=== PATIENT | female | born 1985 | race Caucasian/White ===

== ENCOUNTER 2016-07-16 00:31 | Inpatient (IN) | payer OTHER ==
[~2016-07-16] VITALS: Ht 154.9 cm; Wt 68.5 kg
[~2016-07-16 00:31] MED LIST: ACYC400T PO; MAKE250I IM; SELEPAK PO; SERT-129 PO; ZOFR4TAB3 SL
[2016-07-16] MEDS ORDERED: SODIUM CHLORID 0.9% 500 ML INJ 500 ML IV PRN (01:45)
[2016-07-16] MEDS ORDERED: LIDOCAINE HCL 1% 50 ML VIAL INFIL PRN (01:45)
[2016-07-16] MEDS ORDERED: ONDANSETRON HCL 4 MG/2 ML VIAL IV PRN (01:45)
[2016-07-16] MEDS ORDERED: PENICILLIN G POTASSIUM INJ 5,000,000 UNITS in SODIUM CHLORIDE 0.9% INJ 100 ML IV ONE (01:45)
[2016-07-16] MEDS ORDERED: LIDOCAINE HCL 1% 50 ML VIAL I-DERMAL PRN (01:45)
[2016-07-16] MEDS ORDERED: CITRIC ACID-SODIUM CITRATE LIQ 30 ML UDC PO SCH (01:45)
[2016-07-16] MEDS ORDERED: OXYTOCIN 30 UNITS-500ML PREMIX 500 ML IV ONE (01:45)
[2016-07-16] MEDS ORDERED: MINERAL OIL 10 ML VIAL TOPICAL PRN (01:45)
[2016-07-16] MEDS ORDERED: SODIUM CHLOR 0.9% 1000 ML INJ 1,000 ML IV PRN (02:00)
--- NOTE | 2016-07-16 02:04 | HHI.HP ---
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 11 oz. born at 31 weeks Past Surgical History Surgical History: No Previous Surgery Family History Narrative Family History Diabetes heart disease Social History Alcohol Use: No Tobacco Use: No Substance Abuse: No Allergies-Medications (Allergen,Severity, Reaction): Coded Allergies: No Known Allergies (Unverified , 07/16/16) Home Meds Active Scripts Acyclovir 400 Mg Tab1 Tab PO BID #60 TAB Ref 6 Prov:Kim Capone 06/29/16 Reported Medications Ondansetron Odt (Zofran Odt)4 Mg Tab4 Mg SL Q6HR PRN (Nausea/Vomiting) #30 TAB Ref 0 05/13/16 Sertraline 100 Mg [id number] Mg PO DAILY #60 TAB Ref 0 05/13/16 Hydroxyprogesterone Caproate Inj ([place] Inj)250 Mg/Ml [id number] Mg IM ONCE #1 VIAL Ref 0 05/13/16 Mv & Min W/Fe Polysac (Select-Ob+Dha 29-1 & 250 mg)1 Yoshi Yoshi PO 1 Day 05/13/16 Review of Systems Gastrointestinal: Abdominal Pain Genitourinary: Other Physical Exam Narrative GENERAL: Well-nourished, well-developed patient. Alert oriented 3 and cooperative in no acute distress CARDIOVASCULAR: Regular rate and rhythm without murmurs, gallops, or rubs. RESPIRATORY: Breath sounds equal bilaterally. No accessory muscle use. ABDOMEN/GI: Gravid consistent with stated gestational age Gravid to [-] weeks size Fundal Height: [-] GENITOURINARY: External Genitalia: intact and normal in appearance thoroughly inspection no HSV lesions noted BUS glands: [-] Cervix: [-] Midline soft Dilatation: [-] 2 cm Effacement: [-] 50% effaced Station: [-] -2 Presentation: [-] Vertex Membranes: [ ruptured] clear Uterine Contractions: [-] Irregular FHT's: Category: [-] 1 Baseline: [-] 140 Reactive: [-]+ Variability: [-] Moderate aydq-nn-cxip variability Decels: [-] 0 EXTREMITIES: No cyanosis or edema. 2+ reflexes NEUROLOGICAL: Awake and alert. Motor and sensory grossly within normal limits. Five out of 5 muscle strength in all muscle groups. Normal speech. Data Data Vital Signs Reviewed: Yes (blood pressures 133/79 pulse is 89 respirations 16 temperature is 98.1) Orders Ob (2e) Additional Admit Info (07/16/16 01:16) Admit To Inpatient (07/16/16 ) Code Status (07/16/16 01:40) Vital Signs (Adult) .Per protocol (07/16/16 01:40) ^ Heart (07/16/16 01:40) ^ Amnioinfusion (07/16/16 01:40) Urinary Catheter Management .ONCE (07/16/16 01:40) Diet Liquid (07/16/16 Breakfast) Lactated Ringer's 1000 Ml Inj (Lr 1000 M (07/16/16 01:40) Lactated Ringer's 1000 Ml Inj (Lr 1000 M (07/16/16 01:40) Sodium Chlorid 0.9% 500 Ml Inj (Ns 500 M (07/16/16 01:45) Sodium Chlor 0.9% 1000 Ml Inj (Ns 1000 M (07/16/16 02:00) Lidocaine 1% Inj (50 Ml) (Xylocaine 1% I (07/16/16 01:45) Citric Acid-Sodium Citrate Liq (Bicitra (07/16/16 01:45) Ondansetron Inj (Zofran Inj) (07/16/16 01:45) Fentanyl Inj (Fentanyl Inj) (07/16/16 01:45) Fentanyl Inj (Fentanyl Inj) (07/16/16 01:45) Penicillin G Potassium Inj (Pfizerpen-G (07/16/16 01:45) Penicillin G Potassium Inj (Pfizerpen-G (07/16/16 05:45) Complete Blood Count With Diff (07/16/16 01:40) Hold Clot (07/16/16 01:40) Abo/Rh Blood Type (07/16/16 01:40) Urinalysis - C+S If Indicated (07/16/16 01:40) Resp Oxygen Non Rebreathe Mask (07/16/16 ) ^ Epidural / Intrathecal Infus (07/16/16 01:40) Oxytocin 30 Units-500ml Premix (Pitocin (07/16/16 01:45) Lidocaine 1% Inj (50 Ml) (Xylocaine 1% I (07/16/16 01:45) Light Mineral Oil (Muri-Lube Oil) (07/16/16 01:45) Ob/Psych Drug Screen, Urine (07/16/16 01:40) Assessment/Plan Assessment and Plan Intrauterine at 35 weeks and 3 days Premature rupture of membranes Rh- labor History of labor History of HSV no lesions Plan; Admit IV fluid hydration CBC type and screen Antibiotic coverage for group B strep GBS PCR Epidural at patient's request Anticipate vaginal delivery Shanika Nunez MD Jul 16, 2016 02:04
[2016-07-16 02:41] LABS: BASOPHIL # 0.1 TH/MM3 (0-0.2); BASOPHIL % 0.7 % (0.0-2.0); EOSINOPHIL # 0.4 TH/MM3 (0-0.4); EOSINOPHIL % 3.6 % (0.0-4.0); HEMATOCRIT 30.9 % (35.0-46.0); LYMPH % 26.4 % (9.0-44.0); LYMPHOCYTE # 3.1 TH/MM3 (1.0-4.8); MEAN CELL VOLUME 75.4 FL (80.0-100.0); MEAN CORPUSCULAR HEMOGLOBIN 24.6 PG (27.0-34.0); MEAN CORPUSCULAR HGB CONC 32.6 % (32.0-36.0); MONO % 9.4 % (0.0-8.0); NEUT % 59.9 % (16.0-70.0); PLATELET COUNT 313 TH/MM3 (150-450); RED CELL DISTRIBUTION WIDTH 15.7 % (11.6-17.2); WHITE BLOOD COUNT 11.6 TH/MM3 (4.0-11.0)
[2016-07-16 02:44] LABS: BACTERIA, URINE RARE /hpf; BLOOD, URINE TRACE (NEG); COMMENT (UR) CULTURE INDICATED; CULTURE IF INDICATED CULTURE INDICATED; GLUCOSE,URINE NEG (NEG); HYALINE CAST, URINE 1 /lpf (RARE); KETONE, URINE NEG (NEG); NITRITE,URINE NEG (NEG); PH, URINE 6.5 (5.0-8.5); SQUAMOUS EPITHELIAL CELL URINE 13 /hpf (0-5); URINE COLOR LIGHT-YELLOW (YELLW/STRAW)
[2016-07-16 02:47] LABS: HEMO FLAGS AUTO DIFF
[2016-07-16 02:57] LABS: AMPHETAMINE, URINE NEG (NEG); BARBITURATES, URINE NEG (NEG); COCAINE, URINE NEG (NEG)
[2016-07-16 03:14] LABS: BANDS 6 % (0-6); CORRECTED NUCLEATED RBC 1 /100 WBC (0-0); EOSINOPHILS 4 % (0-4); NEUTROPHIL # MANUAL DIFF 7.3 TH/MM3 (1.8-7.7); PLATELET ESTIMATE SMEAR NORMAL (NORMAL); PLATELET MORPHOLOGY NORMAL (NORMAL); POLYS (SEG NEUTROPHILS) 57 % (16-70); SCAN/DIFF FINAL DIFF MANUAL; WBC DIFF SAMPLE 100
[2016-07-16] MEDS ORDERED: ePHEDrine/NS 50 MG/5 ML SYR ONE (03:56)
[2016-07-16] MEDS ORDERED: fentaNYL 2MCG-BUPIV 0.125% INJ 100 ML ONE (03:56)
[2016-07-16] MEDS: LACTATED RINGER'S 1000 ML INJ 1,000 ML IV PRN ×2 (04:26→05:20)
[2016-07-16] MEDS: LACTATED RINGER'S 1000 ML INJ 1,000 ML IV SCH ×2 (04:26→12:25)
[2016-07-16] MEDS ORDERED: NO SYSTEM NARCOTICS XX PRN (05:00)
[2016-07-16] MEDS ORDERED: DO NOT ADMINISTER ANTICOAGULANTS XX PRN (05:00)
[2016-07-16] MEDS ORDERED: ePHEDrine/NS 50 MG/5 ML SYR IV PRN (05:00)
[2016-07-16] MEDS ORDERED: fentaNYL 2MCG-BUPIV 0.125% INJ 100 ML EPIDURAL SCH (05:00)
[2016-07-16] MEDS ORDERED: PENICILLIN G POTASSIUM INJ 2,500,000 UNITS in SODIUM CHLORIDE 0.9% INJ 100 ML IV SCH (05:45)
[2016-07-16] MEDS ORDERED: OXYTOCIN 30 UNITS-500ML PREMIX 500 ML ONE (11:22)
--- NOTE | 2016-07-16 11:55 | PD.OB.DELI ---
Delivery Date: Jul 16, 2016 Anesthesia: Epidural Episiotomy: None Vaginal Delivery: Normal Presentation: Occiput anterior Nuchal Cord: x2 : Female One Minute : 8 Five Minute : 9 Weight: [id number] Infant Care: Suctioned, Spontaneous crying, Responded to stimulation Placenta: Spontaneous delivery Additional Information Ms. Apodaca is a 31 y/o G2 now P2 after without complication. There were no cervical or vaginal repairs required. Mother and baby are resting comfortably in room together. SDW: Avery Peter MD R1 Jul 16, 2016 11:55
[2016-07-16] MEDS ORDERED: ZOLPIDEM TARTRATE 5 MG TAB PO PRN (12:00)
[2016-07-16] MEDS ORDERED: SODIUM CHLORIDE 0.9% FLUSH 5 ML FLUSH IV PRN (12:00)
[2016-07-16] MEDS ORDERED: DOCUSATE SODIUM 50 MG/SENNA 8.6 MG TAB PO PRN (12:00)
[2016-07-16] MEDS ORDERED: ONDANSETRON ODT 4 MG TAB PO PRN (12:00)
[2016-07-16] MEDS ORDERED: BENZOCAINE 20% TOPICAL SPRAY 60 ML CAN TOPICAL PRN (12:00)
[2016-07-16] MEDS ORDERED: WITCH HAZEL 50%/GLYCERIN 12.5% 40 PAD JAR TOPICAL PRN (12:00)
[2016-07-16] MEDS ORDERED: ALUMINUM/MAGNESIUM/SIMETH 30 ML CUP PO PRN (12:00)
[2016-07-16] MEDS ORDERED: ACETAMINOPHEN 325 MG TAB PO PRN (12:00)
[2016-07-16] MEDS: SODIUM CHLORIDE 0.9% FLUSH 5 ML FLUSH IV SCH (12:26)
--- NOTE | 2016-07-16 12:35 | PD.LABORPN ---
Subjective Subjective Attending Delivery note on Ms Gr Patient 35 week gestation who delivered vaginally without complication over an intact perineum, a lacerations. Baby did well, placenta Out Spontaneously and Intact. Delivery done by family life counselor no complications aside blood loss 100 cc. Mother and baby doing well Objective Objective Pelvic Exam: Cervix: [-] Dilatation: [-] Effacement: [-] Station: [-] Presentation: [-] Membranes: [intact or ruptured] Uterine Contractions: [-] FHT's: Category: [-] Baseline: [-] Reactive: [-] Variability: [-] Decels: [-] Keon Connors II, MD Jul 16, 2016 12:35
[2016-07-16 14:00] VITALS: BP 117/75; PULSE 83; RESP 17; TEMP 98.3
[2016-07-16] MEDS ORDERED: MEASLES, MUMPS, RUBELLA VACCINE 0.5 ML VIAL SQ ONE (16:00)
[2016-07-16] MEDS ORDERED: DIPHTH/TETANUS/ACEL PERTUSSIS (BOOSTER) 0.5 ML VIAL/PFS IM ONE (16:00)
[2016-07-16 19:50] VITALS: BP 125/81; PULSE 88; RESP 18; TEMP 98.5
[2016-07-17] MEDS: IBUPROFEN 600 MG TAB PO PRN ×2 (01:06→18:13)
--- NOTE | 2016-07-17 08:54 | HHI.OB ---
Subjective Post Day: 1 Remarks doing well no problems , sarah diet , bleeding decreased uterus at umb NT Objective Vitals/I&O Vital Signs Date Time Temp Pulse Resp B/P Pulse Ox O2 Delivery O2 Flow Rate FiO2 07/16/16 19:50 98.5 88 18 125/81 07/16/16 14:00 98.3 83 17 117/75 Objective Remarks GENERAL: Well-nourished, well-developed patient. CARDIOVASCULAR: Regular rate and rhythm without murmurs, gallops, or rubs. RESPIRATORY: Breath sounds equal bilaterally. No accessory muscle use. ABDOMEN/GI: Abdomen soft, non-tender. Fundus: Firm, non-tender at umbilicus. GENITOURINARY: Light to moderate bleeding. EXTREMITIES: No cyanosis or edema, non-tender, without signs of DVT. Medications and IVs Current Medications Medications (Trade) Dose Ordered Sig/Mary Route Start Time Stop Time Status Last Admin Lactated Ringer's 1,000 ml @ 125 mls/hr Q8H IV 07/16/16 01:40 07/16/16 12:25 Lactated Ringer's 1,000 ml @ 3,000 mls/hr Q20M PRN IV 07/16/16 01:40 07/16/16 05:20 Sodium Chloride 1,000 ml @ 100 mls/hr Q10H PRN IV 07/16/16 02:00 (Pfizerpen-G Inj/ NS Inj) 100 ml @ 200 mls/hr Q4H IV 07/16/16 05:45 07/16/16 06:32 (NS Flush) 2 ml BID IV 07/16/16 12:00 07/16/16 12:26 (NS Flush) 2 ml UNSCH PRN IV 07/16/16 12:00 (Tylenol) 650 mg Q4H PRN PO 07/16/16 12:00 (Motrin) 600 mg Q6H PRN PO 07/16/16 12:00 07/17/16 01:06 (Americaine 20% Top Spr) 1 spray Q4H PRN TOPICAL 07/16/16 12:00 (Tucks Pads) 1 applic QID PRN TOPICAL 07/16/16 12:00 (Beatriz-Colace) 2 tab Q12H PRN PO 07/16/16 12:00 (Ambien) 5 mg HS PRN PO 07/16/16 12:00 (Mag-Al Plus Susp Liq) 15 ml Q8H PRN PO 07/16/16 12:00 (Zofran Odt) 4 mg Q6H PRN PO 07/16/16 12:00 (Flu (Quadrivalent) Vaccine Inj) 0.5 ml ONCE ONCE IM 07/17/16 09:00 07/17/16 09:01 Assessment/Plan Assessment and Plan Intrauterine at 35 weeks and 3 days en Plan;D/C home Keon Thayer II, MD Jul 17, 2016 08:54
[2016-07-17] MEDS ORDERED: INFLUENZA VIRUS VACCINE (QUADRIVALENT) 0.5 ML SYR IM ONE (09:00)
[2016-07-17] MEDS: SODIUM CHLORIDE 0.9% FLUSH 5 ML FLUSH IV SCH ×2 (09:00→21:00)
--- NOTE | 2016-07-17 11:38 | HHI.OB ---
Subjective Post Day: 1 Remarks 31-year-old , post day #1 after a spontaneous vaginal delivery. Positive for herpes, was on acyclovir suppressive therapy. She is recovering well. Eating whole foods, urinating normally, ambulating. Her pain is well controlled. Objective Vitals/I&O Vital Signs Date Time Temp Pulse Resp B/P Pulse Ox O2 Delivery O2 Flow Rate FiO2 07/16/16 19:50 98.5 88 18 125/81 07/16/16 14:00 98.3 83 17 117/75 Objective Remarks GENERAL: Well-nourished, well-developed patient. CARDIOVASCULAR: Regular rate and rhythm without murmurs, gallops, or rubs. RESPIRATORY: Breath sounds equal bilaterally. No accessory muscle use. ABDOMEN/GI: Abdomen soft, non-tender. Fundus: Firm, non-tender at umbilicus. GENITOURINARY: Light to moderate bleeding. EXTREMITIES: No cyanosis or edema, non-tender, without signs of DVT. Medications and IVs Current Medications Medications (Trade) Dose Ordered Sig/Mary Route Start Time Stop Time Status Last Admin Lactated Ringer's 1,000 ml @ 125 mls/hr Q8H IV 07/16/16 01:40 07/16/16 12:25 Lactated Ringer's 1,000 ml @ 3,000 mls/hr Q20M PRN IV 07/16/16 01:40 07/16/16 05:20 Sodium Chloride 1,000 ml @ 100 mls/hr Q10H PRN IV 07/16/16 02:00 (Pfizerpen-G Inj/ NS Inj) 100 ml @ 200 mls/hr Q4H IV 07/16/16 05:45 07/16/16 06:32 (NS Flush) 2 ml BID IV 07/16/16 12:00 07/16/16 12:26 (NS Flush) 2 ml UNSCH PRN IV 07/16/16 12:00 (Tylenol) 650 mg Q4H PRN PO 07/16/16 12:00 (Motrin) 600 mg Q6H PRN PO 07/16/16 12:00 07/17/16 01:06 (Americaine 20% Top Spr) 1 spray Q4H PRN TOPICAL 07/16/16 12:00 (Tucks Pads) 1 applic QID PRN TOPICAL 1/5/17 12:00 (Beatriz-Colace) 2 tab Q12H PRN PO 07/16/16 12:00 (Ambien) 5 mg HS PRN PO 07/16/16 12:00 (Mag-Al Plus Susp Liq) 15 ml Q8H PRN PO 07/16/16 12:00 (Zofran Odt) 4 mg Q6H PRN PO 07/16/16 12:00 Assessment/Plan Problem List: (1) care following vaginal delivery (2) Depression complicating , antepartum Assessment and Plan 31-year-old female, Intrauterine at 35 weeks and 3 days, delivered via spontaneous vaginal delivery. - AFVSS -Urine culture showed greater than 100,000 colony-forming units of lactobacillus , likely a contaminant. - Continue routine care - Motrin and Percocet PRN pain - Encourage OOB - Pelvic rest x 6 wks - Contraception: We'll discuss with her PCP. - Anticipate D/C tomorrow 07/18/2015 puja Gray-John Anderson MD R2 Jul 17, 2016 11:38
[2016-07-17] MEDS ORDERED: IBUP-232 PO (12:01)
[2016-07-17] MEDS ORDERED: SENN1TAB PO (12:01)
--- NOTE | 2016-07-17 12:01 | HHI.DCPOC ---
Discharge Care Plan Diagnosis: (1) care following vaginal delivery (2) UTI (urinary tract infection) (3) Depression complicating , antepartum Report Symptoms to Your Doctor -Temperate above 100.5 degrees -Redness, of incision or excessive or foul smelling drainage -Unusual pain or calf pain -Increased vaginal bleeding -Painful or difficulty urinating -Feelings of extreme sadness or anxiety after 2 weeks Goals to Promote Your Health * To prevent worsening of your condition and complications * To maintain your health at the optimal level Directions to Meet Your Goals Take your medications as prescribed Follow your dietary instruction Follow activity as directed Ensure plenty of rest for recovery Drink fluids for hydration Keep your appointments as scheduled Take your immunizations and boosters as scheduled If your symptoms worsen call your PCP, if no PCP go to Urgent Care Center or Emergency Room Smoking is Dangerous to Your Health. Avoid second hand smoke Call the 24-hour crisis hotline for domestic abuse at John Grubbs MD R2 Jul 17, 2016 12:01
[2016-07-18] MEDS: LACTATED RINGER'S 1000 ML INJ 1,000 ML IV SCH (01:40)
[2016-07-18] MEDS: IBUPROFEN 600 MG TAB PO PRN (07:49)
--- NOTE | 2016-07-18 08:57 | HHI.OB ---
Subjective Post Day: 2 Remarks day # 2. AFVSS overnight. Pain controlled. Decreased lochia. Denies dysuria. No breast tenderness. She is feeding the baby via breast. Appetite good. No nausea or vomiting. Positive flatus. Positive bowel movement. Ambulating well. Denies calf pain, shortness of breath, or cough. Otherwise, she is doing well this morning and has no other complaints. Objective Objective Remarks GENERAL: Well-nourished, well-developed patient. CARDIOVASCULAR: Regular rate and rhythm without murmurs, gallops, or rubs. RESPIRATORY: Breath sounds equal bilaterally. No accessory muscle use. ABDOMEN/GI: Abdomen soft, non-tender. Fundus: Firm, non-tender at umbilicus. GENITOURINARY: Light to moderate bleeding. EXTREMITIES: No cyanosis or edema, non-tender, without signs of DVT. Medications and IVs Current Medications Medications (Trade) Dose Ordered Sig/Mary Route Start Time Stop Time Status Last Admin Lactated Ringer's 1,000 ml @ 125 mls/hr Q8H IV 07/16/16 01:40 07/16/16 12:25 Lactated Ringer's 1,000 ml @ 3,000 mls/hr Q20M PRN IV 07/16/16 01:40 07/16/16 05:20 Sodium Chloride 1,000 ml @ 100 mls/hr Q10H PRN IV 07/16/16 02:00 (Pfizerpen-G Inj/ NS Inj) 100 ml @ 200 mls/hr Q4H IV 07/16/16 05:45 07/16/16 06:32 (NS Flush) 2 ml BID IV 07/16/16 12:00 07/16/16 12:26 (NS Flush) 2 ml UNSCH PRN IV 07/16/16 12:00 (Tylenol) 650 mg Q4H PRN PO 07/16/16 12:00 (Motrin) 600 mg Q6H PRN PO 07/16/16 12:00 07/18/16 07:49 (Americaine 20% Top Spr) 1 spray Q4H PRN TOPICAL 07/16/16 12:00 (Tucks Pads) 1 applic QID PRN TOPICAL 07/16/16 12:00 (Beatriz-Colace) 2 tab Q12H PRN PO 07/16/16 12:00 07/18/16 07:49 (Ambien) 5 mg HS PRN PO 07/16/16 12:00 (Mag-Al Plus Susp Liq) 15 ml Q8H PRN PO 07/16/16 12:00 (Zofran Odt) 4 mg Q6H PRN PO 07/16/16 12:00 Assessment/Plan Problem List: (1) care following vaginal delivery (2) Depression complicating , antepartum Assessment and Plan 31-year-old female, Intrauterine at 35 weeks and 3 days, delivered via spontaneous vaginal delivery. - AFVSS -Urine culture showed greater than 100,000 colony-forming units of lactobacillus , likely a contaminant. - Continue routine care - Motrin and Percocet PRN pain - Encourage OOB - Pelvic rest x 6 wks - Contraception: We'll discuss with her PCP. - Anticipate D/C today 07/18/2015 opal Nunez Discharge Planning Discharge home today Tate Lucas MD R2 Jul 18, 2016 08:57
[2016-07-18] MEDS: SODIUM CHLORIDE 0.9% FLUSH 5 ML FLUSH IV SCH (09:00)
[2016-07-21 11:05] LABS: BATH SALTS (MDPV) UR NEG (NEG); ECSTASY (MDMA) UR NEG (NEG); HEROIN (6-ACETYLMORPHINE) UR NEG (NEG); K2 SPICE UR NEG (NEG); OBMETHADONE UR NEG (NEG); OXYCODONE (PERCODAN) NEG (NEG); PHENCYCLIDINE URINE NEG (NEG)
[2016-07-30] MEDS ORDERED: ZOLO25TA PO (13:54)
[2016-08-21] MEDS ORDERED: SERT-129 PO (09:17)
[2016-08-21] MEDS ORDERED: ZOLO25TA PO (09:17)
[2016-09-18] MEDS ORDERED: CELE20TA PO (08:41)
[2016-09-18] MEDS ORDERED: PERM5CRE11 TOPICAL (08:44)
[2016-09-18] MEDS ORDERED: ZITHTAB PO (08:46)
== END 2016-07-18 18:25 | disposition home or self-care (01) | DRG 775 ==
LOC: HOBED 00:31 → H2EB 01:17 → H1EA 13:59
PROVIDERS: ADMIT Obstetrics & Gynecology; ATTEND Obstetrics & Gynecology
PROC: 10E0XZZ Delivery of Products of Conception, External Approach (ICD-10-PCS; principal; 2016-07-16)
PROC: 00HU33Z Insertion of Infusion Device into Spinal Canal, Percutaneous Approach (ICD-10-PCS; 2016-07-16)
PROC: 3E0R3CZ (ICD-10-PCS; 2016-07-16)
DX: O60.14X0 Preterm labor third trimester with preterm delivery third trimester, not applicable or unspecified (principal); O99.340 Other mental disorders complicating pregnancy, unspecified trimester; O42.013 Preterm premature rupture of membranes, onset of labor within 24 hours of rupture, third trimester; O42.913 Preterm premature rupture of membranes, unspecified as to length of time between rupture and onset of labor, third trimester; Z3A.35 35 weeks gestation of pregnancy; Z37.0 Single live birth; Z23 Encounter for immunization
CPT/HCPCS: 59025; 80307; 81001; 84112; 85007; 85027; 86900; 86901; 87086; 90686; 90715; 99285; G0481; J2540; J2590; J3010; J7120; Q2038

== ENCOUNTER 2017-07-11 08:37 | Emergency (ER) | payer MEDICAID, OTHER ==
[~2017-07-11] VITALS: Ht 154.9 cm; Wt 57.0 kg
[~2017-07-11 08:37] MED LIST changes: +CELE20TA PO; -MAKE250I IM; +PERM5CRE11 TOPICAL; -SELEPAK PO; -SERT-129 PO; +ZITHTAB PO; -ZOFR4TAB3 SL; +ZOLO100T PO; +ZOLO25TA PO
[2017-07-11 08:39] VITALS: BP 131/80; PULSE 112; RESP 16; TEMP 98.8; O2SAT 99
--- NOTE | 2017-07-11 08:48 | PD ---
HPI Chief Complaint: GI Complaint Time Seen by Provider: 08:47 Travel History International Travel<30 days: No Contact w/Intl Traveler<30days: No Traveled to known affect area: No History of Present Illness HPI 32-year-old female came to the emergency room with history of sore throat that' s been going on for past 2-3 days. Patient says that she went to see her primary care yesterday and was started on amoxicillin. She did get a test for strep throat and influenza in the office. But that was negative. However she was still started on amoxicillin by the primary care. Patient says that today she has been having severe pain when she tries to swallow and also started to vomit. She was unable to hold the antibiotic down and hence decided to come to the emergency room. She has had sick contacts in the form of her children being sick at home. Patient is otherwise a healthy person. She was afebrile in the emergency room triage but tachycardic. Patient is having no difficulty breathing or talking. However she continues to spit out her saliva as I'm talking to her since she has pain when she swallows. PFSH Past Medical History Narrative Medical List of her past medical, surgical, social and family history is reviewed from the nursing note. ?: Not LMP: IUD Social History Alcohol Use: No Tobacco Use: No Allergies-Medications (Allergen,Severity, Reaction): Coded Allergies: No Known Allergies (Unverified Adverse Reaction, Unknown, 07/11/17) Comments No known drug allergies. Reported Meds & Prescriptions Reported Meds & Active Scripts Active Ibuprofen 600 Mg Tab 600 Mg PO Q6H PRN Acyclovir 400 Mg Tab 1 Tab PO BID Zoloft (Sertraline HCl) 25 Mg Tab 25 Mg PO DAILY Zoloft (Sertraline HCl) 100 Mg Tab 100 Mg PO DAILY Zithromax Z-Yoshi (Azithromycin) 250 Mg Dspk 250 Mg PO DIRECTED 500 MG (2 tabs) day 1, then 1 tab days 2-5. Celexa (Citalopram Hydrobromide) 20 Mg Tab 20 Mg PO DAILY Narrative Medication List of her home medications reviewed from the nursing note. Review of Systems Except as stated in HPI: all other systems reviewed are Neg General / Constitutional: Positive: Fever HENT: Positive: Sore Throat Physical Exam Narrative GENERAL: Awake, alert, moderate distress SKIN: Focused skin assessment warm/dry. HEAD: Atraumatic. Normocephalic. EYES: Pupils equal and round. No scleral icterus. No injection or drainage. ENT: No nasal bleeding or discharge. Mucous membranes pink and moist. Significant erythema of the soft palate, tonsils and the posterior pharynx. There are some exudates on the tonsils. NECK: Trachea midline. No JVD. CARDIOVASCULAR: Regular rate and rhythm. No murmur appreciated. RESPIRATORY: No accessory muscle use. Clear to auscultation. Breath sounds equal bilaterally. GASTROINTESTINAL: Abdomen soft, non-tender, nondistended. Hepatic and splenic margins not palpable. MUSCULOSKELETAL: No obvious deformities. No clubbing. No cyanosis. No edema. NEUROLOGICAL: Awake and alert. No obvious cranial nerve deficits. Motor grossly within normal limits. Normal speech. PSYCHIATRIC: Appropriate mood and affect; insight and judgment normal. Data Data Last Documented VS Orders Orders Sepsis Workup Initiated (07/11/17 ) Complete Blood Count With Diff (07/11/17 10:04) Comprehensive Metabolic Panel (07/11/17 10:04) Lactic Acid Sepsis Protocol (07/11/17 10:04) Blood Culture (07/11/17 10:04) Chest, Single Ap (07/11/17 10:04) Blood Glucose (07/11/17 10:04) Ecg Monitoring (07/11/17 10:04) Iv Access Insert/Monitor (07/11/17 10:04) Oximetry (07/11/17 10:04) Oxygen Administration (07/11/17 10:04) Sodium Chlor 0.9% 1000 Ml Inj (Ns 1000 M (07/11/17 10:15) Ceftriaxone Inj (Rocephin Inj) (07/11/17 10:15) Ct Soft Tiss Neck W Iv Cont (07/11/17 ) Ketorolac Inj (Toradol Inj) (07/11/17 10:15) Potassium Chloride (Kcl) (07/11/17 11:45) Iohexol 350 Inj (Omnipaque 350 Inj) (07/11/17 12:24) Ed Discharge Order (07/11/17 13:15) Labs Laboratory Tests Test 07/11/17 10:20 White Blood Count 20.1 TH/MM3 Red Blood Count 4.39 MIL/MM3 Hemoglobin 12.7 GM/DL Hematocrit 38.4 % Mean Corpuscular Volume 87.5 FL Mean Corpuscular Hemoglobin 29.0 PG Mean Corpuscular Hemoglobin Concent 33.1 % Red Cell Distribution Width 14.2 % Platelet Count 434 TH/MM3 Mean Platelet Volume 8.5 FL Neutrophils (%) (Auto) 78.6 % Lymphocytes (%) (Auto) 11.2 % Monocytes (%) (Auto) 8.8 % Eosinophils (%) (Auto) 1.0 % Basophils (%) (Auto) 0.4 % Neutrophils # (Auto) 15.8 TH/MM3 Lymphocytes # (Auto) 2.2 TH/MM3 Monocytes # (Auto) 1.8 TH/MM3 Eosinophils # (Auto) 0.2 TH/MM3 Basophils # (Auto) 0.1 TH/MM3 CBC Comment DIFF FINAL Differential Comment Blood Urea Nitrogen 9 MG/DL Creatinine 0.63 MG/DL Random Glucose 84 MG/DL Total Protein 8.5 GM/DL Albumin 3.5 GM/DL Calcium Level 8.8 MG/DL Alkaline Phosphatase 118 U/L Aspartate Amino Transf (AST/SGOT) 8 U/L Alanine Aminotransferase (ALT/SGPT) 17 U/L Total Bilirubin 0.3 MG/DL Sodium Level 139 MEQ/L Potassium Level 3.3 MEQ/L Chloride Level 105 MEQ/L Carbon Dioxide Level 26.9 MEQ/L Anion Gap 7 MEQ/L Estimat Glomerular Filtration Rate 110 ML/MIN Lactic Acid Level 0.7 mmol/L MDM Medical Decision Making Medical Screen Exam Complete: Yes Emergency Medical Condition: Yes Medical Record Reviewed: Yes Differential Diagnosis Strep pharyngitis, retropharyngeal abscess, epiglottitis Narrative Course 1:09 PM patient was given IV antibiotic Rocephin and IV fluid bolus when she came in and I also gave her Toradol for the pain. Blood test was suggestive of leukocytosis with left shift. CT scan of the neck showed possible microabscess in the tonsil as per the radiologist but no big collection that needs to be drained. I went back and reassessed the patient and she says that she has been feeling better. She is able to swallow better. At this point I'm comfortable discharging her home. She needs to continue with her amoxicillin prescription and finish it. She is to follow-up with the primary care. Patient understands all these instructions. Procedures EKG Prior to Arrival: No Diagnosis Primary Impression: Tonsillitis Additional Impressions: Leukocytosis Qualified Codes: D72.829 - Elevated white blood cell count, unspecified Odynophagia Referrals: Primary Care Physician 2 days Additional Instructions: Please return to the ER if the condition worsens or any other new concerns. Otherwise continue taking the amoxicillin as per the prescription direction given to by your primary care and finish the course. Take Motrin/Advil/ ibuprofen for pain. Try to stay hydrated as much as possible. Med/Other Pt SpecificInfo: Prescription(s) given Scripts Ibuprofen (Ibuprofen) 600 Mg Tab 600 MG PO Q6H Y for Pain/Inflammation, #40 TAB 0 Refills Prov: Don Da Silva MD 07/11/17 Disposition: 01 DISCHARGE HOME Condition: Stable Don Da Silva MD Jul 11, 2017 08:48
[2017-07-11] MEDS ORDERED: KETOROLAC TROMETHAMINE 30 MG/ML (IVP) VIAL IV PUSH ONE (10:15)
[2017-07-11] MEDS ORDERED: SODIUM CHLOR 0.9% 1000 ML INJ 1,000 ML IV ONE (10:15)
[2017-07-11] MEDS ORDERED: cefTRIAXone INJ 1,000 MG in SODIUM CHLORIDE 0.9% INJ 100 ML IV ONE (10:15)
--- NOTE | 2017-07-11 10:36 | RADRPT ---
EXAM DATE/TIME: 07/11/2017 10:16 [facility] COMPARISON: No previous studies available for comparison. INDICATIONS : Cough. MEDICAL HISTORY : None. SURGICAL HISTORY : None. ENCOUNTER: Initial ACUITY: 1 day PAIN SCORE: 0/10 LOCATION: Bilateral chest FINDINGS: A single view of the chest demonstrates the lungs to be symmetrically aerated without evidence of mas s, infiltrate or effusion. The cardiomediastinal contours are unremarkable. Osseous structures are intact. CONCLUSION: Normal examination. Yaya Velazquez MD on July 11, 2017 at 10:34 Board Certified Radiologist. This report was verified electronically.
[2017-07-11 10:43] VITALS: O2SAT 98
[2017-07-11 10:46] VITALS: BP 124/74; PULSE 90; RESP 18; O2SAT 98
[2017-07-11 10:58] LABS: AUTOMATED NEUTROPHIL # 15.8 TH/MM3 (1.8-7.7); BASOPHIL # 0.1 TH/MM3 (0-0.2); BASOPHIL % 0.4 % (0.0-2.0); EOSINOPHIL # 0.2 TH/MM3 (0-0.4); HEMATOCRIT 38.4 % (35.0-46.0); HEMOGLOBIN 12.7 GM/DL (11.6-15.3); LYMPH % 11.2 % (9.0-44.0); LYMPHOCYTE # 2.2 TH/MM3 (1.0-4.8); MEAN CELL VOLUME 87.5 FL (80.0-100.0); MEAN CORPUSCULAR HGB CONC 33.1 % (32.0-36.0); MEAN PLATELET VOLUME 8.5 FL (7.0-11.0); MONO % 8.8 % (0.0-8.0); MONOCYTE # 1.8 TH/MM3 (0-0.9); NEUT % 78.6 % (16.0-70.0); PLATELET COUNT 434 TH/MM3 (150-450); RED BLOOD COUNT 4.39 MIL/MM3 (4.00-5.30); RED CELL DISTRIBUTION WIDTH 14.2 % (11.6-17.2); WHITE BLOOD COUNT 20.1 TH/MM3 (4.0-11.0)
[2017-07-11 11:22] LABS: ALBUMIN 3.5 GM/DL (3.4-5.0); ALT (GPT) 17 U/L (10-53); AST (GOT) 8 U/L (15-37); BICARBONATE 26.9 MEQ/L (21.0-32.0); BLOOD UREA NITROGEN 9 MG/DL (7-18); CALCIUM 8.8 MG/DL (8.5-10.1); CHLORIDE 105 MEQ/L (98-107); CREATININE 0.63 MG/DL (0.50-1.00); GLOMERULAR FILTRATION RATE 110 ML/MIN (>89); GLUCOSE,RANDOM 84 MG/DL (74-106); SODIUM (NA) 139 MEQ/L (136-145)
[2017-07-11 11:24] LABS: ALKALINE PHOSPHATASE 118 U/L (45-117); TOTAL BILIRUBIN ADULT 0.3 MG/DL (0.2-1.0); TOTAL PROTEIN 8.5 GM/DL (6.4-8.2)
[2017-07-11] MEDS ORDERED: POTASSIUM CHLORIDE 20 MEQ CONTROLLED RELEASE TAB PO ONE (11:45)
[2017-07-11 11:53] VITALS: RESP 18
[2017-07-11] MEDS ORDERED: IOHEXOL 350 MG/ML 10 ML VIAL (for RAD DIAG) IVCONTRAST ONE (12:24)
--- NOTE | 2017-07-11 12:54 | RADRPT ---
EXAM DATE/TIME: 07/11/2017 12:11 [facility] COMPARISON: No previous studies available for comparison. INDICATIONS : Sore throat with nausea, vomiting.Abscess. IV CONTRAST: 70 cc Omnipaque 350 (iohexol) IV RADIATION DOSE: 13.26 CTDIvol (mGy) MEDICAL HISTORY : None SURGICAL HISTORY : ENCOUNTER: Initial ACUITY: 1 day PAIN SCALE: 5/10 LOCATION: neck TECHNIQUE: Volumetric scanning of the neck was performed. Using automated exposure control and adjustment of th e mA and/or kV according to patient size, radiation dose was kept as low as reasonably achievable to obtain optimal diagnostic quality images. DICOM format image data is available electronically for r eview and comparison. FINDINGS: NASOPHARYNX: The nasopharyngeal airway has a normal configuration. No mucosal thickening or mass is seen. OROPHARYNX: The tonsils appear enlarged. There are 2 nonspecific areas of low density seen in the left tonsil. Th e larger area measures 1.2 x 0.5 cm and a smaller area measures 0.6 cm in greatest dimension. Small a bscesses could have this appearance. LARYNX: The supraglottic, glottic, and infraglottic structures are intact. PARAPHARYNGEAL: The parapharyngeal space is intact. Enlarged lymph nodes are seen the parapharyngeal space measuring up to 2.0 x 1.3 cm on the right and 1.7 x 1.17 on the left. The lymph nodes appear more numerous on t he left side. SALIVARY GLANDS: The parotid and submandibular glands are intact. LYMPH NODES: There is adenopathy seen throughout the neck bilaterally the most prominent in the digastric regions. The lymph nodes are more numerous on the left side. There are mildly prominent lymph nodes in the po sterior triangles bilaterally and around the submandibular glands bilaterally. THYROID: Homogeneous enhancement without evidence of nodule. BONES: Unremarkable. CONCLUSION: Small areas of decreased density in the left tonsil likely breanna of inflammatory change. Early abscess formation could have this appearance. There is adenopathy seen bilaterally in the neck being more pr ominent on the left. Yaya Velazquez MD on July 11, 2017 at 12:45 Board Certified Radiologist. This report was verified electronically.
[2017-07-11] MEDS ORDERED: IBUP-232 PO (13:05)
[2017-07-11 13:32] VITALS: BP 128/72
== END 2017-07-11 13:33 | disposition home or self-care (01) ==
LOC: NEPE 08:37
DX: J03.90 Acute tonsillitis, unspecified (principal); D72.829 Elevated white blood cell count, unspecified; R13.10 Dysphagia, unspecified; Z79.899 Other long term (current) drug therapy
CPT/HCPCS: 70491; 71010; 80053; 83605; 85025; 87040; 96374; 96375; 99285; J0696; J1885; J7030; Q9967

== ENCOUNTER 2017-08-22 14:23 | Emergency (ER) | payer MEDICAID ==
[~2017-08-22] VITALS: Ht 154.9 cm; Wt 57.0 kg
[~2017-08-22 14:23] MED LIST changes: +IBUP-232 PO; -PERM5CRE11 TOPICAL
[2017-08-22 14:25] VITALS: BP 117/63; PULSE 116; RESP 15; TEMP 102.4; O2SAT 97
[2017-08-22] MEDS ORDERED: ACETAMINOPHEN 325 MG TAB PO ONE (14:45)
[2017-08-22 15:47] VITALS: PULSE 90
--- NOTE | 2017-08-22 15:58 | PD ---
HPI Chief Complaint: Cold / Flu Symptoms Time Seen by Provider: 15:48 Travel History International Travel<30 days: No Contact w/Intl Traveler<30days: No Traveled to known affect area: No History of Present Illness HPI 32-year-old female presents to the emergency Department with complaint of cough , body aches, nasal congestion, and a little bit of sore throat, and right ear pain 3 days. MAXIMUM TEMPERATURE 103.0. Reports diarrhea that has continued today. Reports vomiting that subsided last night, without continuation of vomiting today. Denies nausea. Denies abdominal pain. Denies dysuria. Denies chest pain, shortness of breath, wheezing. Her son had similar symptoms last week. She has tried [id number] cold medications for symptom management. Symptoms are mild in severity. Primary care provider is Dr. Karl Sepulveda. No known allergies. History of depression, otherwise denies significant past medical history. Has no other medical complaints. No other modifying factors or associated signs and symptoms. PFSH Past Medical History Medical History: Denies Significant Hx Tetanus Vaccination: < 5 Years ?: Not Past Surgical History Surgical History: No Previous Surgery Social History Alcohol Use: No Tobacco Use: No Substance Use: No Allergies-Medications (Allergen,Severity, Reaction): Coded Allergies: No Known Allergies (Unverified Adverse Reaction, Unknown, 07/11/17) Reported Meds & Prescriptions Reported Meds & Active Scripts Active Ibuprofen 600 Mg Tab 600 Mg PO Q6H PRN Acyclovir 400 Mg Tab 1 Tab PO BID Zoloft (Sertraline HCl) 25 Mg Tab 25 Mg PO DAILY Zoloft (Sertraline HCl) 100 Mg Tab 100 Mg PO DAILY Zithromax Z-Yoshi (Azithromycin) 250 Mg Dspk 250 Mg PO DIRECTED 500 MG (2 tabs) day 1, then 1 tab days 2-5. Celexa (Citalopram Hydrobromide) 20 Mg Tab 20 Mg PO DAILY Review of Systems Except as stated in HPI: all other systems reviewed are Neg Physical Exam Narrative GENERAL: Well-nourished, well-developed female patient, in no acute distress; febrile of 102.4; nontoxic-appearing SKIN: Warm and dry. No rash. HEAD: Atraumatic. Normocephalic. EYES: Pupils equal and round. No scleral icterus. No injection or drainage. ENT: Mucosa pink and moist. No erythema or exudates. No uvular edema. No uvular , palatal, or tonsillar deviation. Airway patent. EARS: Bilateral pinnae and external canals appear within normal limits. Bilateral tympanic membranes without erythema, dullness or perforation. NECK: Trachea midline. No lymphadenopathy. CARDIOVASCULAR: Regular rate and rhythm. No murmur appreciated. RESPIRATORY: No accessory muscle use. Clear to auscultation. Breath sounds equal bilaterally. No retractions or tachypnea. GASTROINTESTINAL: Abdomen soft, non-tender, nondistended. Hepatic and splenic margins not palpable. Bowel sounds are active 4 quadrants. MUSCULOSKELETAL: No obvious deformities. No clubbing. No cyanosis. No edema. NEUROLOGICAL: Awake and alert. Oriented 3. No obvious cranial nerve deficits. Motor grossly within normal limits. Normal speech. Moves all extremities. 5/5 strength to all extremities. PSYCHIATRIC: Appropriate mood and affect; insight and judgment normal. Data Data Last Documented VS Vital Signs Date Time Temp Pulse Resp B/P (MAP) Pulse Ox O2 Delivery O2 Flow Rate FiO2 08/22/17 17:00 08/22/17 15:47 90 08/22/17 14:25 102.4 15 97 Orders Orders Acetaminophen (Tylenol) (08/22/17 14:45) Influenzae A/B Antigen (08/22/17 15:56) Group A Rapid Strep Screen (08/22/17 15:56) Chest, Single Ap (08/22/17 15:56) Strep Culture (Group A) (08/22/17 16:10) Ed Discharge Order (08/22/17 16:53) MDM Medical Decision Making Medical Screen Exam Complete: Yes Emergency Medical Condition: Yes Medical Record Reviewed: Yes Differential Diagnosis Influenza, viral illness, upper respiratory infection, pneumonia, bronchitis Narrative Course 32-year-old female with cold/flu/cough symptoms 3 days. Fever of 102.4 in the ER. MAXIMUM TEMPERATURE 103.0 at home. Reports diarrhea and vomiting. Patient is nontoxic-appearing. Chest x-ray, influenza, rapid strep ordered. Tylenol was given in triage. Patient given Gatorade after physical exam. 1600: On reexamination the patient has tolerated Gatorade without any nausea or vomiting. Chest x-ray, influenza, rapid strep unremarkable. I discussed the patient with the attending physician, Dr. Galicia, and she agrees with discharge. Discussed viral illness and symptomatic management with the patient. Instructed patient to follow up with primary care provider. Patient verbalizes understanding and agreement with treatment plan. Patient is medically cleared and stable for discharge. Discussed reasons to return to the emergency department. Patient agrees with treatment plan. The patients vital signs are stable and the patient is stable for outpatient follow-up and treatment. Patient discharged home, stable and in no acute distress. Diagnosis Primary Impression: Viral illness Referrals: [facility] Primary Care Physician Patient Instructions: General Instructions, Influenza (ED), Safe Use of Cough and Cold Medicines (ED) Departure Forms: Tests/Procedures, Work Release Special Instructions: No work until fever free for 24 hours; fever is temperature greater than 100.4 Additional Instructions: Ibuprofen or Tylenol as directed and as needed to reduce fever; may alternate ibuprofen and Tylenol as needed every 3 hours to minimize fever Bsas-vhf-[id number] cold/flu medications as directed and as needed for symptom management Get plenty of sleep/rest Drink plenty of fluids to prevent dehydration; such as Gatorade, Powerade, Pedialyte [place] diet to encourage nutrition such as crackers, fruit, applesauce, toast, soup etc. Use an air humidifier/turn off ceiling fans Follow-up with your primary care provider within 1 day Return immediately to the emergency department with worsening of symptoms Med/Other Pt SpecificInfo: No Change to Meds, No Meds Exist/No RX given Disposition: 01 DISCHARGE HOME Condition: Stable Bibi Rizvi Aug 22, 2017 15:58
--- NOTE | 2017-08-22 16:27 | RADRPT ---
EXAM DATE/TIME: 08/22/2017 16:04 [facility] COMPARISON: CHEST SINGLE AP, July 11, 2017, 10:16. INDICATIONS : Cough and shortness of breath for three days. MEDICAL HISTORY : None. SURGICAL HISTORY : None. ENCOUNTER: Initial ACUITY: 3 days PAIN SCORE: 0/10 LOCATION: Bilateral chest FINDINGS: A single view of the chest demonstrates the lungs to be symmetrically aerated without evidence of mas s, infiltrate or effusion. The cardiomediastinal contours are unremarkable. Osseous structures are intact. CONCLUSION: The lungs are clear. Aakash Downing MD on August 22, 2017 at 16:24 Board Certified Radiologist. This report was verified electronically.
--- NOTE | 2017-08-22 16:47 | PD ---
Physical Exam Date Seen by Provider: Aug 22, 2017 Narrative Patient presents with cough and cold symptoms. Data Data Last Documented VS Vital Signs Date Time Temp Pulse Resp B/P (MAP) Pulse Ox O2 Delivery O2 Flow Rate FiO2 08/22/17 15:47 90 08/22/17 14:25 102.4 15 97 Orders Orders Acetaminophen (Tylenol) (08/22/17 14:45) Influenzae A/B Antigen (08/22/17 15:56) Group A Rapid Strep Screen (08/22/17 15:56) Chest, Single Ap (08/22/17 15:56) Strep Culture (Group A) (08/22/17 16:10) MDM Supervised Visit with SATHYA: Yes Narrative Course I, Dr. Galicia, have reviewed the advance practice practitioner's documentation and am in agreement, met with the patient face to face, made the diagnosis, and the medical decision making was done by me. *My assessment and Findings: I found the patient standing up in the room blowing her nose. She is in no distress. She is able to speak to me in complete sentences. Please see Bibi Rizvi NP's note for results of laboratory and radiographic evaluation, ED course, final diagnosis and disposition Sravanthi Galicia MD Aug 22, 2017 16:47
== END 2017-08-22 17:46 | disposition home or self-care (01) ==
LOC: NEPD 14:23
DX: B34.9 Viral infection, unspecified (principal); F32.9 Major depressive disorder, single episode, unspecified; Z79.899 Other long term (current) drug therapy
CPT/HCPCS: 71045; 87081; 87804; 87880; 99284

== ENCOUNTER 2017-08-27 09:09 | Emergency (ER) | payer MEDICAID ==
[~2017-08-27] VITALS: Ht 154.9 cm; Wt 60.0 kg
[2017-08-27 09:12] VITALS: BP 133/86; PULSE 102; RESP 14; TEMP 97.3; O2SAT 100
[2017-08-27] MEDS ORDERED: NAPROXEN 500 MG TAB PO ONE (09:30)
[2017-08-27] MEDS ORDERED: NAPR500T2 PO (09:36)
--- NOTE | 2017-08-27 09:37 | PD ---
HPI Chief Complaint: Cold / Flu Symptoms Time Seen by Provider: 09:22 Travel History International Travel<30 days: No Contact w/Intl Traveler<30days: No Traveled to known affect area: No History of Present Illness HPI [id number] presents emerged from complaining of sore throat, fevers, feeling poorly, dehydration, some headaches. No nausea vomiting now. No change in her bowel movements. No rashes she is appreciated. No sick contacts. Was seen here earlier had negative strep, negative fluid, negative chest x-ray. Here back now because she states she feels worse, which she defines is feeling more fatigued, more tired, more sore throat. She has taken some [id number] medications with minimal relief. History Past Medical History Medical History: Denies Significant Hx Social History Alcohol Use: No Tobacco Use: No Allergies-Medications (Allergen,Severity, Reaction): Coded Allergies: No Known Allergies (Unverified Adverse Reaction, Unknown, 07/11/17) Reported Meds & Prescriptions Reported Meds & Active Scripts Active Ibuprofen 600 Mg Tab 600 Mg PO Q6H PRN Acyclovir 400 Mg Tab 1 Tab PO BID Zoloft (Sertraline HCl) 25 Mg Tab 25 Mg PO DAILY Zoloft (Sertraline HCl) 100 Mg Tab 100 Mg PO DAILY Zithromax Z-Yoshi (Azithromycin) 250 Mg Dspk 250 Mg PO DIRECTED 500 MG (2 tabs) day 1, then 1 tab days 2-5. Celexa (Citalopram Hydrobromide) 20 Mg Tab 20 Mg PO DAILY Review of Systems Except as stated in HPI: all other systems reviewed are Neg Physical Exam Narrative GENERAL: Well-appearing 32-year-old woman, no acute distress. SKIN: Focused skin assessment warm/dry. No rash. HEAD: Atraumatic. Normocephalic. EYES: Pupils equal and round. No scleral icterus. No injection or drainage. ENT: Mucous membranes dry. The posterior oropharynx, on the soft palate, there are several small ulcerations and some erythema and redness. There is no purulent exudate. There is no tonsillar swelling. Little bit of anterior cervical adenopathy. No meningismus. CARDIOVASCULAR: Regular rate and rhythm. No murmur appreciated. RESPIRATORY: No accessory muscle use. Clear to auscultation. Breath sounds equal bilaterally. GASTROINTESTINAL: Abdomen soft, non-tender, nondistended. Hepatic and splenic margins not palpable. MUSCULOSKELETAL: No obvious deformities. Data Data Last Documented VS Vital Signs Date Time Temp Pulse Resp B/P (MAP) Pulse Ox O2 Delivery O2 Flow Rate FiO2 08/27/17 09:12 97.3 102 14 133/86 (102) 100 Room Air Orders Orders Naproxen (Naprosyn) (08/27/17 09:30) [facility] Medical Decision Making Medical Screen Exam Complete: Yes Emergency Medical Condition: Yes Differential Diagnosis Viral exanthem, herpangina, coxsackie, strep, other Narrative Course Medical decision-making 32-year-old only URI symptoms and now what appears to be a viral exanthem with v superficial ulcerations in the posterior oropharynx and soft palate. Recommend supportive treatment. Diagnosis Primary Impression: Herpangina Patient Instructions: General Instructions Additional Instructions: Take Naprosyn as needed for sore throat and fever. Follow-up with your primary doctor in the next 2-4 days if not feeling completely well. Return to the emergency department for any new or worsening symptoms. Scripts Naproxen (Naproxen) 500 Mg Tab 500 MG PO BID, #20 TAB 0 Refills Prov: Pepe Reardon MD 08/27/17 Disposition: 01 DISCHARGE HOME Condition: Stable Pepe Reardon MD Aug 27, 2017 09:37
[2017-08-27] MEDS ORDERED: MAGICADU2 SWISH-SWAL (09:51)
== END 2017-08-27 10:01 | disposition home or self-care (01) ==
LOC: NEPD 09:09
DX: B08.5 Enteroviral vesicular pharyngitis (principal); R50.9 Fever, unspecified; R53.81 Other malaise; R51 Headache; R53.83 Other fatigue
CPT/HCPCS: 99283